=== PATIENT | female | born 1975 | race Caucasian/White ===

== ENCOUNTER → 2019-09-21 13:26 | Outpatient (BNVA) | payer BC, SELFPAY | PROVIDERS: Family Provider Nurse Practitioner Family; Visit Provider Nurse Practitioner Family | DX: M25.531 Pain in right wrist (principal) | CPT/HCPCS: 73130 ==

== ENCOUNTER 2019-11-04 07:05 | Emergency (ER) | payer SELFPAY ==
[2019-11-04 07:22] VITALS: BP 135/85; PULSE 88; RESP 15; TEMP 36.4; O2SAT 97; BMI 29.8
--- NOTE | 2019-11-04 07:28 | ED_ITS ---
HPI - Abdominal Pain General: Chief Complaint: Abdominal Pain Stated Complaint: ABD PAIN Time Seen by Provider: 11/04/19 07:07 Source: patient Mode of arrival: ambulatory Limitations: no limitations History of Present Illness: HPI narrative: Patient is a nice 44-year-old female who presents to ED today with a complaint of lower abdominal pain that she has had over the past 2 days. She describes the pain as intermittent and very sharp and crampy in nature. She states when pain comes on it will double her over . She states she has been taking Aleve for the pain and states that does work temporarily. Patient states she has not had a bowel movement in 2 days. She is passing gas. She denies dysuria, urinary frequency, urgency, hesitancy. She is not having flank pain. She is having nausea without vomiting. Reports a previous hysterectomy. She does not complain of vaginal discharge or odor or vaginal bleeding. No fevers. MD elicited complaint: abdominal pain Onset (ago): day(s) (2d ago) Pain Consistency: intermittent Location: Suprapubic Severity: severe Quality: cramping and sharp Radiation: none Migration to: no migration Relieving factors: other (taking Aleve) Associated Symptoms: Reports constipation, GI cramping and nausea; Denies chills, coffee ground emesis, diarrhea, dysuria, fever(s), heartburn, hematochezia, hematemesis, melena and vomiting Related Data: Patient : No Review of Systems Const: Denies: fever(s), chills, body aches, fatigue or malaise Card: Denies: chest pain Resp: Denies: dyspnea GI: Reports: abdominal pain, nausea, constipation and GI cramping; Denies: vomiting, hematemesis, coffee ground emesis, heartburn, diarrhea, pain on defecation, rectal pain, hematochezia or melena : Denies: flank pain, difficulty voiding, dysuria, urinary frequency, urinary urgency, urinary hesitancy, oliguria, vaginal bleeding or vaginal discharge Musc: Denies: neck pain, back pain, extremity pain, extremity swelling, joint pain or joint swelling Skin/Breast: Denies: rash Neuro: Denies: headache(s), numbness in extremities, weakness in extremities or sensory changes PFS ED PFSH: Medical History (Updated 11/04/19 @ 09:37 by JASPREET Jones) Anxiety GERD (gastroesophageal reflux disease) Hormone replacement therapy (HRT) Hyperlipidemia Psoriasis Seasonal allergies Vitamin B 12 deficiency Surgical History (Updated 11/04/19 @ 07:30 by JASPREET Jones) History of abdominoplasty Hx of section Family History (Updated 09/21/19 @ 13:34 by Meghan Packer LPN, RT) Other No pertinent family history Social History (Updated 11/04/19 @ 07:34 by Gildardo Chavira RN) Smoking and tobacco status: current every day smoker cigarettes Packs smoked per day: 1 Years cigarettes smoked: 25 Second hand smoke exposure: Yes Alcohol intake: current Alcohol intake frequency: holidays/special occasions only Substance/Drug Use: never Lives independently: Yes Household members: spouse Marital status: Current occupational status: employed History of recent travel: No Current gender identity: Female Physical Exam Const: COMMON NORMALS: no acute distress, average body habitus, patient oriented x3, no limitations, healthy appearing, alert and well nourished Resp: COMMON NORMALS: normal respiratory effort and clear to auscultation bilaterally AUSCULTATION: clear to auscultation bilaterally Cardio: COMMON NORMALS: regular rate and regular rhythm RATE: regular rate RHYTHM: regular rhythm GI: COMMON NORMALS: Normal to inspection, nondistended, normoactive bowel sounds present, Soft to palpation, No hepatosplenomegaly present and no masses PALPATION: Yes Soft to palpation, Yes Tenderness to palpation present (GI) (suprapubic ) and Yes No hepatosplenomegaly present : COMMON NORMALS: Yes no CVA tenderness BLADDER/KIDNEY EXAM: Yes no CVA tenderness Back/Pelvis: COMMON NORMALS: no CVA tenderness Extremity: COMMON NORMALS: no pedal edema Neuro: COMMON NORMALS: patient oriented x3 SENSORIUM/ORIENTATION: Yes alert Skin: COMMON NORMALS: no rashes or lesions noted GENERAL SKIN EXAM: no rashes or lesions noted Course Vital Signs: Vital signs: Vital Signs Temperature 97.6 F 11/04/19 07:22 Pulse Rate 88 11/04/19 07:22 Respiratory Rate 15 11/04/19 07:22 Blood Pressure 135/85 11/04/19 07:22 Pulse Oximetry 97 11/04/19 07:34 MDM - Abdominal Pain Medical Records: Medical records narrative: Patient is a nice 44-year-old female here for intermittent crampy lower abdominal pain over the past [address] scan showing acute sigmoid diverticulitis without abscess or perforation. Patient does have a white count of 19.7 however she is not tachycardic or febrile. She is not having any active episodes of vomiting. She states with her last episode of diverticulitis she was able to be treated successfully at home. We will place patient on Cipro and Flagyl and give her pain and nausea medications. Strict return to ED precautions given. She will need follow-up with PCP in 3 to 5 days for reevaluation. Lab Data: Labs: Lab Results 11/04/19 11/04/19 11/04/19 Range/Units 07:40 07:50 07:50 WBC 19.7 H (4.0-10.0) 10^3/ uL RBC 5.10 (4.1-5.3) 10^6/u L Hgb 15.1 (11.5-15.3) g/dL Hct 44.0 (37.0-47.0) % MCV 86.3 (81-99) fL MCH 29.6 (28.0-34.0) pg MCHC 34.3 (30.0-36.0) g/dL RDW 11.8 L (12.1-15.1) % Plt Count 224 (130-400) 10^3/c mm MPV 10.2 (7.4-10.4) fL Neut % (Auto) 76.8 % Lymph % (Auto) 14.9 % [place] % (Auto) 6.7 % Eos % (Auto) 0.7 % Baso % (Auto) 0.5 % Neut # (Auto) 15.09 H (1.8-7.7) 10^3/u L Lymph # (Auto) 2.9 (0.8-4.8) 10^3/u L [place] # (Auto) 1.3 H (0.2-0.9) 10^3/u L Eos # (Auto) 0.1 (0.0-0.8) 10^3/u L Baso # (Auto) 0.1 (0.0-0.1) 10^3/u L Nucleated RBC % (a uto) 0 % Nucleated RBCs # 0.0 /100WBC Sodium 138 (136-145) mmol/L Potassium 4.4 (3.5-5.1) mmol/L Chloride 104 (98-107) mmol/L Carbon Dioxide 24 (22-29) mmol/L Anion Gap 14.4 (5-19) BUN 7 (6-20) mg/dL Creatinine 0.8 (0.5-0.9) mg/dL GFR Calculation 77.2 L (90-130) mL/min Glucose 106 (65-115) mg/dL Calculated Osmolal ity 282 L (285-295) mOsm/k g Calcium 9.5 (8.5-10.5) mg/dL Total Bilirubin 0.7 (0.15-1.2) mg/dL AST 17 (0-32) U/L ALT 20 (0-33) U/L Alkaline Phosphata se 134 H (35-105) IU/L Total Protein 7.5 (6.6-8.7) g/dL Albumin 4.2 (3.5-5.2) g/dL Globulin 3.3 (1.3-4.6) g/dL Lipase 42 (13-60) U/L Urine Color Yellow (Yellow) Urine Appearance Clear (CLEAR) Urine pH 5.0 (5-7) Ur Specific Gravit y 1.010 (1.005-1.030) Urine Protein Neg (Negative) Urine Glucose (UA) Norm (Normal) Urine Ketones Negative (Negative) Urine Blood 2+ H (Negative) Urine Nitrate Negative (Negative) Urine Bilirubin Neg (NEGATIVE) Urine Urobilinogen Norm (Negative) mg/dL Ur Leukocyte Jeimy ase Negative (Negative) Urine RBC 0-4 H (0-2) /hpf Urine WBC None (0-5) /hpf Ur Squamous Epith Cells 0-4 H (0-5) Amorphous Sediment Not Reportable Urine Bacteria Trace (NONE) Urine Mucus Trace Imaging Data ^: CT Abd/Pel: Radiologist's impression: [address] [address] [address] Scan Report Signed Patient: Marycarmen Hooker Unit #: [id number] : 1975 Age/Sex: 44 / F ADM Date: 11/04/19 Loc: ER Room/Bed: Attending Dr: Ordering Provider/Ordering MD: Carolina Enrique Date of Service: 11/04/19 Procedure(s): CT abdomen pelvis w con* [id number] Accession Number(s): [id number] Report Number: [id number] WS: [id number] CT ABDOMEN AND PELVIS WITH CONTRAST HISTORY: lower abdominal pain TECHNIQUE: Imaging performed of the abdomen and pelvis with IV contrast. Single phase imaging of the abdomen. Coronal and sagittal reformats are submitted. All CT scans at [facility] use at least one of these dose optimization techniques: automated exposure control; mA and/or kV adjustment per patient size (includes targeted exams where dose is matched to clinical indication); or iterative reconstruction. IV CONTRAST: Omnipaque 300; 95 mL IV. Oral contrast: No DLP: 677.01 mGy.cm COMPARISON: 04/24/2016 Lower thorax: Benign granuloma at the LEFT lung base. Heart is normal size. No hiatal hernia. Liver/biliary system: Moderate hepatic steatosis. Liver is moderately enlarged. No mass or bile duct dilatation. Gallbladder: Status post cholecystectomy. Pancreas: Normal. Spleen: Normal. Adrenal glands: Normal. Right kidney: Normal. Left kidney: Normal. Aorta: Mild atherosclerosis with no aneurysm. Lymphadenopathy: Small but indeterminate lymph nodes near the portal vein and IVC are stable since 2017 with no increase in size or number. There are small benign-appearing para- aortic lymph nodes. Free fluid: None. GI tract: The appendix is normal. Ovoid hyperechoic focus measuring 11 x 6 mm at the cecum and base of the appendix may be medicinal. There is no obstruction at this time. There is mild constipation and fecal retention. Numerous diverticula throughout the sigmoid colon. There is a moderate area of inflammation extending over 10 cm in the distal sigmoid consistent with acute diverticulitis. There is pericolonic inflammation with no abscess. No free fluid. Abdominal wall: Unremarkable abdominal wall. No hernia. Pelvis: Well-distended urinary bladder. Prior hysterectomy. Bones: Unremarkable. CT/CT abdomen pelvis w con* [id number] IMPRESSION: 1. Moderately severe changes of acute sigmoid diverticulitis. No abscess or free air. 2. Normal appendix. 3. Prior cholecystectomy and hysterectomy. 4. Hepatic steatosis and hepatomegaly. Dictated By: Jessica Wolfe DO Signed By: Jessica Wolfe DO Signed Date/Time: 11/04/19915 DD/ 5 Discharge Plan Discharge Patient Disposition: Home Clinical Impression: Diverticulitis of sigmoid colon Condition: Stable Prescriptions: New hydrocodone-acetaminophen 5-325 mg tablet 1 tab PO Q6H PRN (Reason: pain) Qty: 15 RF: 0 ondansetron HCl [Zofran] 4 mg tablet 4 mg PO Q6H PRN (Reason: nausea and vomiting) Qty: 14 RF: 0 metronidazole [Flagyl] 500 mg tablet 500 mg PO BID 7 Days Qty: 14 RF: 0 ciprofloxacin HCl [Cipro] 500 mg tablet 500 mg PO Q12H Qty: 14 RF: 0 No Action citalopram 20 mg tablet 20 mg PO DAILY RF: 0 omeprazole 20 mg capsule,delayed release(DR/EC) 20 mg PO DAILY RF: 0 Discharge Orders: Discharge Order (Routine); Ordered 11/04/19 Ordered By: Carolina Enrique Patient Instructions: Diverticulitis, Diverticulitis (ED) Activity Restrictions/Additional Instructions: As discussed please seek reevaluation for worsening abdominal pain, fevers greater than 100.4, generally feeling worse, repetitive episodes of vomiting, not being able to hold down your antibiotics, or any other concerns you may have. Please follow-up with primary care in 3 to 5 days for reevaluation. I hope you begin to feel better soon. Coding Level of Care Code ED Live Study Manager for [employer] Fwd Exam Detailed
[2019-11-04 07:34] VITALS: O2SAT 97
[2019-11-04 07:57] LABS: Add Urine Microscopic? YES; Bilirubin Urine Neg (NEGATIVE); Blood Urine 2+ (Negative); Glucose Urine UA Norm (Normal); Ketones Urine Negative (Negative); Leukocyte Esterase Urine Negative (Negative); Nitrate Urine Negative (Negative); Protein Urine Neg (Negative); Urine Appearance Clear (CLEAR); Urine Color Yellow (Yellow); Urobilinogen Urine Norm (Negative)
[2019-11-04 07:58] LABS: Add Urine Culture? No; Bacteria Urine TRACE; Mucus Urine TRACE; RBC Urine 0-4 /hpf (0-2); Squamous Epithelial Cell Urine 0-4 (0-5)
[2019-11-04 08:01] LABS: Basophils # 0.1 10^3/uL (0.0-0.1); Basophils % 0.5 %; Eosinophils # 0.1 10^3/uL (0.0-0.8); Eosinophils % 0.7 %; Hemoglobin 15.1 g/dL (11.5-15.3); Lymphocytes # 2.9 10^3/uL (0.8-4.8); Lymphocytes % 14.9 %; Mean Corpuscular HGB Conc 34.3 g/dL (30.0-36.0); Mean Corpuscular Hemoglobin 29.6 pg (28.0-34.0); Mean Corpuscular Volume 86.3 fL (81-99); Mean Platelet Volume 10.2 fL (7.4-10.4); Monocytes # 1.3 10^3/uL (0.2-0.9); Monocytes % 6.7 %; Neutrophils # 15.09 10^3/uL (1.8-7.7); Neutrophils % 76.8 %; Nucleated Red Blood Cells % 0 %; Platelet Count 224 10^3/cmm (130-400); Red Cell Distribution Width 11.8 % (12.1-15.1); White Blood Count 19.7 10^3/uL (4.0-10.0)
--- NOTE | 2019-11-04 08:01 | CT_ITS ---
WS: [id number] CT ABDOMEN AND PELVIS WITH CONTRAST HISTORY: lower abdominal pain TECHNIQUE: Imaging performed of the abdomen and pelvis with IV contrast. Single phase imaging of the abdomen. Coronal and sagittal reformats are submitted. All CT scans at [facility] use at least one of these dose optimization techniques: automated exposure control; mA and/or kV adjustment per patient size (includes targeted exams where dose is matched to clinical indication); or iterativ e reconstruction. IV CONTRAST: Omnipaque 300; 95 mL IV. Oral contrast: No DLP: 677.01 mGy.cm COMPARISON: 04/24/2016 Lower thorax: Benign granuloma at the LEFT lung base. Heart is normal size. No hiatal hernia. Liver/biliary system: Moderate hepatic steatosis. Liver is moderately enlarged. No mass or bile duct dilatation. Gallbladder: Status post cholecystectomy. Pancreas: Normal. Spleen: Normal. Adrenal glands: Normal. Right kidney: Normal. Left kidney: Normal. Aorta: Mild atherosclerosis with no aneurysm. Lymphadenopathy: Small but indeterminate lymph nodes near the portal vein and IVC are stable since with no increase in size or number. There are small benign-appearing para-aortic lymph nodes. Free fluid: None. GI tract: The appendix is normal. Ovoid hyperechoic focus measuring 11 x 6 mm at the cecum and base o f the appendix may be medicinal. There is no obstruction at this time. There is mild constipation and fecal retention. Numerous diverticula throughout the sigmoid colon. There is a moderate area of infl ammation extending over 10 cm in the distal sigmoid consistent with acute diverticulitis. There is pe ricolonic inflammation with no abscess. No free fluid. Abdominal wall: Unremarkable abdominal wall. No hernia. Pelvis: Well-distended urinary bladder. Prior hysterectomy. Bones: Unremarkable. CT/CT abdomen pelvis w con* [id number] IMPRESSION: 1. Moderately severe changes of acute sigmoid diverticulitis. No abscess or fr ee air. 2. Normal appendix. 3. Prior cholecystectomy and hysterectomy. 4. Hepatic steatosis and hepatomegaly.
[2019-11-04] MEDS: sodium chloride 0.9% 1,000 ML 999 ML IV (08:08)
[2019-11-04 08:30] LABS: Alanine Aminotransferase 20 U/L (0-33); Albumin Level 4.2 g/dL (3.5-5.2); Alkaline Phosphatase 134 IU/L (35-105); Blood Urea Nitrogen 7 mg/dL (6-20); Calcium 9.5 mg/dL (8.5-10.5); Carbon Dioxide 24 mmol/L (22-29); Chloride 104 mmol/L (98-107); Globulin 3.3 g/dL (1.3-4.6); Glomerular Filtration Rate 77.2 mL/min (90-130); Glucose 106 mg/dL (65-115); Lipase 42 U/L (13-60); Osmolality Calculated 282 mOsm/kg (285-295); Sodium 138 mmol/L (136-145); Total Bilirubin 0.7 mg/dL (0.15-1.2); Total Protein 7.5 g/dL (6.6-8.7)
[2019-11-04 08:36] LABS: Anion Gap 14.4 (5-19); Aspartate Amino Transferase 17 U/L (0-32); Potassium 4.4 mmol/L (3.5-5.1)
--- NOTE | 2019-11-04 08:40 | PC.NURSE ---
pt to CT by stretcher with tech
[2019-11-04] MEDS: iohexol 300 mg/mL 100 mL Btl IV (08:43)
[2019-11-04 09:36] VITALS: BP 119/86; PULSE 73; O2SAT 98
[2019-11-04 10:11] VITALS: BP 129/82; PULSE 75; O2SAT 97
== END 2019-11-04 10:11 | disposition home or self-care (01) ==
PROVIDERS: Emergency Provider Physician Assistant
DX: K57.32 Diverticulitis of large intestine without perforation or abscess without bleeding (principal); E78.5 Hyperlipidemia, unspecified; F17.210 Nicotine dependence, cigarettes, uncomplicated
CPT/HCPCS: 12345; 74177; 80053; 81001; 83690; 85025; 96360; 96361; 99283; J7030; Q9967

== ENCOUNTER → 2021-01-10 15:00 | Outpatient (BNVA) | payer MEDICAID, SELFPAY | PROVIDERS: Visit Provider Nurse Practitioner Family | DX: R30.0 Dysuria (principal); N39.0 Urinary tract infection, site not specified | CPT/HCPCS: 81003; 87086 ==

== ENCOUNTER → 2021-05-20 14:59 | Outpatient (BNVA) | payer MEDICAID, SELFPAY | PROVIDERS: Visit Provider Nurse Practitioner Family | DX: J06.9 Acute upper respiratory infection, unspecified (principal); Z13.9 Encounter for screening, unspecified; Z11.52 Encounter for screening for COVID-19; E78.5 Hyperlipidemia, unspecified; R53.1 Weakness; R53.83 Other fatigue; Z78.0 Asymptomatic menopausal state; F41.9 Anxiety disorder, unspecified; E53.8 Deficiency of other specified B group vitamins; J40 Bronchitis, not specified as acute or chronic | CPT/HCPCS: 80053; 80061; 82306; 82607; 82746; 87635 ==

== ENCOUNTER → 2021-07-10 16:08 | Outpatient (BNVA) | payer MEDICAID, SELFPAY | PROVIDERS: PCP Nurse Practitioner Family; Visit Provider Nurse Practitioner Family | DX: R05.9 Cough, unspecified (principal); J06.9 Acute upper respiratory infection, unspecified; R53.1 Weakness; R53.83 Other fatigue; J39.8 Other specified diseases of upper respiratory tract; J18.9 Pneumonia, unspecified organism; R11.0 Nausea; Z11.52 Encounter for screening for COVID-19 | CPT/HCPCS: 80053; 85025; 87635 ==

== ENCOUNTER 2021-07-11 13:34 | Outpatient (CLI) | payer MEDICAID, SELFPAY ==
--- NOTE | 2021-07-11 13:43 | XR_ITS ---
WS: [id number] XR chest 2V* [id number] REASON FOR EXAM: J39.8 - Other specified diseases of upper respiratory tract FINDINGS: Chest is unchanged compared to 12/30/2018. Mild tortuosity the thoracic aorta. Normal heart size. Calcified granulomatous disease in both hemithoraces. No active pulmonary parenchymal or pleural disease. Bony thorax is intact without significant abnormality. XR/XR chest 2V* [id number] IMPRESSION: Stable chest without acute abnormality.
== END 2021-07-11 13:35 | disposition home or self-care (01) ==
PROVIDERS: PCP Nurse Practitioner Family; Visit Provider Nurse Practitioner Family
DX: R05.9 Cough, unspecified (principal); J39.8 Other specified diseases of upper respiratory tract
CPT/HCPCS: 71046

== ENCOUNTER → 2021-07-15 14:07 | Outpatient (BNVA) | payer MEDICAID, SELFPAY | PROVIDERS: PCP Nurse Practitioner Family; Visit Provider Nurse Practitioner Family | DX: D72.829 Elevated white blood cell count, unspecified (principal); J18.9 Pneumonia, unspecified organism; E78.5 Hyperlipidemia, unspecified; W57.XXXA Bitten or stung by nonvenomous insect and other nonvenomous arthropods, initial encounter | CPT/HCPCS: 80053; 86618; 86666; 86757 ==

== ENCOUNTER → 2021-10-28 09:43 | Outpatient (BNVA) | payer MEDICAID, SELFPAY | PROVIDERS: PCP Nurse Practitioner Family; Visit Provider Nurse Practitioner Family | DX: M54.50 Low back pain, unspecified (principal); R31.9 Hematuria, unspecified; E78.5 Hyperlipidemia, unspecified; N39.0 Urinary tract infection, site not specified; Z71.3 Dietary counseling and surveillance; E66.9 Obesity, unspecified; Z12.31 Encounter for screening mammogram for malignant neoplasm of breast; Z12.11 Encounter for screening for malignant neoplasm of colon; K21.9 Gastro-esophageal reflux disease without esophagitis | CPT/HCPCS: 80053; 81003 ==

== ENCOUNTER → 2022-04-04 11:45 | Outpatient (BNVA) | payer MEDICAID, SELFPAY | PROVIDERS: PCP Nurse Practitioner Family; Visit Provider Nurse Practitioner Family | DX: R07.9 Chest pain, unspecified (principal); R03.0 Elevated blood-pressure reading, without diagnosis of hypertension; E78.5 Hyperlipidemia, unspecified; F32.9 Major depressive disorder, single episode, unspecified | CPT/HCPCS: 80053; 80061; 83721; 84439; 84443; 84481 ==

== ENCOUNTER → 2022-05-02 12:44 | Outpatient (BNVA) | payer MEDICAID, SELFPAY | PROVIDERS: PCP Nurse Practitioner Family; Visit Provider Nurse Practitioner Family | DX: M25.512 Pain in left shoulder (principal); M54.2 Cervicalgia; F32.9 Major depressive disorder, single episode, unspecified; R03.0 Elevated blood-pressure reading, without diagnosis of hypertension; J30.2 Other seasonal allergic rhinitis; I10 Essential (primary) hypertension; K21.9 Gastro-esophageal reflux disease without esophagitis; E78.5 Hyperlipidemia, unspecified; E78.1 Pure hyperglyceridemia; F41.9 Anxiety disorder, unspecified | CPT/HCPCS: 80053; 80061 ==

== ENCOUNTER → 2022-09-23 11:59 | Outpatient (BNVA) | payer MEDICAID, SELFPAY | PROVIDERS: PCP Nurse Practitioner Family; Visit Provider Nurse Practitioner Family | DX: I10 Essential (primary) hypertension (principal); E78.1 Pure hyperglyceridemia; F41.9 Anxiety disorder, unspecified; E78.5 Hyperlipidemia, unspecified; R53.83 Other fatigue; R53.1 Weakness; E55.9 Vitamin D deficiency, unspecified; E53.8 Deficiency of other specified B group vitamins; M25.512 Pain in left shoulder; M54.2 Cervicalgia; F32.9 Major depressive disorder, single episode, unspecified; J30.2 Other seasonal allergic rhinitis; K21.9 Gastro-esophageal reflux disease without esophagitis | CPT/HCPCS: 80053; 80061; 82306; 83721; 84443 ==

== ENCOUNTER → 2023-09-07 13:25 | Outpatient (BNVA) | payer MEDICAID, SELFPAY | PROVIDERS: PCP Nurse Practitioner Family; Visit Provider Nurse Practitioner Family | DX: N39.0 Urinary tract infection, site not specified (principal); I10 Essential (primary) hypertension; E78.1 Pure hyperglyceridemia; E78.5 Hyperlipidemia, unspecified; Z20.822 Contact with and (suspected) exposure to COVID-19 | CPT/HCPCS: 80053; 80061; 82150; 83690; 85025 ==

== ENCOUNTER → 2023-10-16 10:07 | Outpatient (BNVA) | payer MEDICAID, SELFPAY | PROVIDERS: PCP Nurse Practitioner Family; Visit Provider Nurse Practitioner Family | DX: K57.92 Diverticulitis of intestine, part unspecified, without perforation or abscess without bleeding (principal) | CPT/HCPCS: 80053; 85025; 86036; 86038; 86140 ==

== ENCOUNTER → 2024-08-12 10:37 | Outpatient (BNVA) | payer SELFPAY | PROVIDERS: PCP Nurse Practitioner Family; Visit Provider Nurse Practitioner Family | DX: R39.9 Unspecified symptoms and signs involving the genitourinary system (principal); N39.0 Urinary tract infection, site not specified | CPT/HCPCS: 81000; 87086 ==